=== PATIENT | female | born 1955 | race Caucasian/White ===

== ENCOUNTER 2024-12-11 18:26 | Emergency (ER) | payer MEDICAID ==
[~2024-12-11] VITALS: Ht 149.9 cm; Wt 48.8 kg
[2024-12-11 18:52] VITALS: TEMP 97.9
[2024-12-11 19:18] LABS: BASOPHILS % (AUTO) 0.4 % (0.0-2.0); EOSINOPHILS % (AUTO) 0.7 % (1.0-6.0); HEMATOCRIT 43.7 % (36-46); HEMOGLOBIN 14.9 g/dL (12.0-16.0); LYMPHOCYTES # (AUTO) 2.4 K/uL (1.0-4.8); LYMPHOCYTES % (AUTO) 48.6 % (22.0-44.0); MEAN CORPUSCULAR HGB CONC 34.2 G/dL (31.0-37.0); MEAN CORPUSCULAR VOLUME 91 fL (80-100); MONOCYTES # (AUTO) 0.4 K/uL (0.1-1.0); MONOCYTES % (AUTO) 8.7 % (2.0-9.0); NEUTROPHILS # (AUTO) 2.1 K/uL (1.8-7.7); NEUTROPHILS % (AUTO) 41.6 % (40.0-70.0); PLATELET COUNT (AUTO) 205 K/uL (150-450); RED BLOOD CELL COUNT(AUTO) 4.81 MIL/uL (4.00-5.20); WHITE BLOOD COUNT (AUTO) 5.1 K/uL (4.5-11.0)
[2024-12-11 19:29] LABS: ANION GAP 9 mmol/L (8-16); CARBON DIOXIDE 30 mmol/L (22-29); CHLORIDE 98 mmol/L (98-107); CREATININE 0.82 mg/dL (0.60-1.30); GLOMERULAR FILTR. RATE CALC > 60 mL/min (>60); POTASSIUM 4.1 mmol/L (3.5-5.1); SODIUM SERUM 137 mmol/L (136-145); UREA NITROGEN, BLOOD 15 mg/dL (7-18)
[2024-12-11 19:30] LABS: ALBUMIN 3.2 g/dL (3.4-5.0); BILIRUBIN,DIRECT 0.1 mg/dL (0.00-0.20); BILIRUBIN,TOTAL 0.4 mg/dL (0.1-1.0); GLUCOSE,RANDOM 465 mg/dL (70-110); TOTAL PROTEIN, SERUM 7.1 g/dL (6.4-8.2)
[2024-12-11] MEDS: SODIUM CHLORIDE 0.9% 1,000 ML IV ONE (19:36)
[2024-12-11] MEDS: INSULIN REGULAR, HUMAN 100 UNITS/ML IVP ONE (20:38)
[2024-12-11] MEDS ORDERED: METF-1211 PO (20:47)
[2024-12-11 21:59] VITALS: BP 134/79; PULSE 91; RESP 18; O2SAT 97
[2024-12-12 06:45] LABS: GLUCOMETER DEV NAME(LOC) ER.7; GLUCOSE,POINT OF CARE 281 MG/DL (70-110)
== END 2024-12-11 22:04 | disposition home or self-care (01) ==
LOC: EMS 18:30
DX: E11.65 Type 2 diabetes mellitus with hyperglycemia (principal)
CPT/HCPCS: 99283; 96374; 96361; 80048; 80076; 82962; 85025; 36415; J1815; J7030